=== PATIENT | female | born 1970 | race Asian ===

== ENCOUNTER 2022-11-13 20:29 | Emergency (ER) | payer BC ==
[~2022-11-13] VITALS: Ht 157.5 cm; Wt 57.3 kg
[2022-11-13] MEDS ORDERED: LEVO25TA7 PO (20:47)
[2022-11-13] MEDS ORDERED: CYCL-394 PO (20:47)
[2022-11-13 20:57] LABS: URINE HCG NEGATIVE (NEG)
[2022-11-13 20:58] LABS: BILIRUBIN,URINE NEGATIVE (Neg); CLARITY,URINE CLEAR (Clear); COLOR,URINE STRAW (Yellow); GLUCOSE, URINE NEGATIVE (Neg); KETONES,URINE NEGATIVE (Neg); LEUKOCYTE ESTERASE ,URINE NEGATIVE (Neg); NITRITES, URINE NEGATIVE (Neg); OCCULT BLOOD,URINE NEGATIVE (Neg); PROTEIN,URINE NEGATIVE (Neg); UROBILINOGEN,URINE 0.2 E.U/dL (0.2-1.0)
[2022-11-13 21:11] LABS: ALANINE AMINOTRANSFERASE 16 U/L (12-78); ALBUMIN 4.3 G/DL (3.4-5.0); ALBUMIN/GLOBULIN RATIO 1.2 (1.1-1.5); ALKALINE PHOSPHATASE 75 IU/L (46-116); ANION GAP 15 (8-16); ASPARTATE AMINO TRANSFERASE 21 U/L (10-37); BILIRUBIN,TOTAL 0.2 MG/DL (0.1-1.0); BLOOD UREA NITROGEN 11 MG/DL (7-18); BUN/CREATININE RATIO 11.6 (10.0-20.0); CALCIUM 9.6 MG/DL (8.5-10.1); CHLORIDE 107 MMOL/L (99-107); CREATININE 0.95 MG/DL (0.40-0.90); GLUCOSE 98 MG/DL (70-104); POTASSIUM 4.4 MMOL/L (3.5-5.1); SODIUM 142 MMOL/L (135-145); TOTAL CARBON DIOXIDE 20.5 MMOL/L (24-32); TOTAL PROTEIN 7.8 G/DL (6.4-8.2); eCRCL 56 ML/MIN; eGFR 62 ML/MIN
[2022-11-13 21:17] LABS: UA COLLECTION TYPE CLN CATCH MIDSTREAM
[2022-11-13 21:18] LABS: BASOPHILS # (AUTO) 0.1 X10'3 (0-0.2); BASOPHILS % (AUTO) 0.5 % (0-1); EOSINOPHILS # (AUTO) 0.1 X10'3 (0-0.9); EOSINOPHILS % (AUTO) 0.7 % (0-6); HEMATOCRIT 44.4 % (35.0-45.0); HEMOGLOBIN 14.2 g/dl (12.0-16.0); LYMPHOCYTES # (AUTO) 2.1 X10'3 (1.1-4.8); LYMPHOCYTES % (AUTO) 16.3 % (21-51); MEAN CORPUSCULAR HEMOGLOBIN 26.8 PG (27.0-31.0); MEAN CORPUSCULAR HGB CONC 32.1 g/dL (33.0-36.5); MEAN CORPUSCULAR VOLUME 83.5 FL (78-98); MONOCYTES # (AUTO) 0.9 X10'3 (0-0.9); MONOCYTES % (AUTO) 6.9 % (2-12); NEUTROPHILS % (AUTO) 75.6 % (42-75); PLATELET COUNT 320 X10'3 (140-440); RED BLOOD COUNT 5.31 X10'6 (4.20-5.60); RED CELL DISTRIBUTION WIDTH 13.7 % (11.5-14.5); WHITE BLOOD COUNT 13.2 X10'3 (4.5-11.0)
[2022-11-13 21:19] LABS: ETHANOL 79 MG/DL (<10); THYROID STIMULATING HORMONE 13.68 ulU/ml (0.34-4.50)
[2022-11-13 21:19] LABS: URINE AMPHETAMINE SCREEN NEGATIVE (Neg); URINE BARBITUATE SCREEN NEGATIVE (Neg); URINE BENZODIAZEPINES SCREEN NEGATIVE (Neg); URINE CANNABINOID SCREEN NEGATIVE (Neg); URINE COCAINE SCREEN NEGATIVE (Neg); URINE METHADONE SCREEN NEGATIVE (Neg); URINE OPIATE SCREEN NEGATIVE (Neg); URINE PHENCYCLIDINE SCREEN NEGATIVE (Neg)
[2022-11-13] MEDS ORDERED: OLANZapine 5mg rapidly disint. tablet PO ONE (21:30)
--- NOTE | 2022-11-13 21:55 | NUR ---
her [facility] is [phone]
--- NOTE | 2022-11-13 22:07 | NUR ---
The patient moved to ER overflow from the main ER. 5150 evaluation process explained to the patient. She is pleasant and cooperative. She did state that she was hungry and snack given. She denies that she wants to . Stated voices with SI was just today and occured suddenly. Zyprexa given.
[2022-11-13] MEDS ORDERED: cyclobenzaprine 10mg tablet PO PRN (22:20)
--- NOTE | 2022-11-13 23:28 | NUR ---
Packet faxed to [facility]
--- NOTE | 2022-11-14 00:58 | NUR ---
The patient appears to be sleeping
--- NOTE | 2022-11-14 02:46 | NUR ---
The patient appears to be sleeping
--- NOTE | 2022-11-14 05:02 | NUR ---
The patient appears to be sleeping
--- NOTE | 2022-11-14 05:03 | NUR ---
The patient appears to be sleeping
[2022-11-14 05:44] VITALS: BP 107/66; PULSE 77; TEMP 97.9; O2SAT 97
--- NOTE | 2022-11-14 06:50 | NUR ---
Patient sleeping supine. Nonlabored respirations. No distress observed. Continue with the plan of care.
[2022-11-14] MEDS ORDERED: levoTHYROXINE 25mcg tablet PO SCH (07:30)
--- NOTE | 2022-11-14 08:13 | NUR ---
Patient eating breakfast. No distress observed. Continue to monitor.
--- NOTE | 2022-11-14 10:10 | NUR ---
KIRSTIE, Gaby, evaluating patient. No distress observed. Continue to monitor.
[2022-11-14 14:14] VITALS: RESP 17
== END 2022-11-14 12:55 | disposition home or self-care (01) ==
LOC: ER 20:30
DX: R45.851 Suicidal ideations (principal); E03.9 Hypothyroidism, unspecified; Z20.822 Contact with and (suspected) exposure to COVID-19; Z88.6 Allergy status to analgesic agent
CPT/HCPCS: 36415; 80053; 80305; 80320; 81003; 81025; 84443; 85025; 87811; 99285; C2617